=== PATIENT | female | born 2000 | race Hispanic/Latino ===

== ENCOUNTER 2021-04-04 07:30 | Inpatient (IN) | payer OTHER ==
[2021-04-04] MEDS: Lactated Ringer's 1,000 ML IV SCH ×3 (08:20→22:40)
[2021-04-04] MEDS ORDERED: Ondansetron PF 4 MG/2 ML Vial IVP PRN (08:29)
[2021-04-04] MEDS ORDERED: Famotidine/PF 20 mg/2ml Vial SLOW IVP PRN (08:29)
[2021-04-04] MEDS ORDERED: CEFAZOLIN 2 GM in Premix Bag 1 BAG IVPB SCH (08:29)
[2021-04-04] MEDS ORDERED: Butorphanol Tartrate 1 MG/ML VIAL SLOW IVP PRN (08:29)
[2021-04-04] MEDS ORDERED: Promethazine HCl 25 MG/ML VIAL IM PRN ×2 (08:29→13:22)
[2021-04-04] MEDS ORDERED: hydrALAZINE 20 MG/ML VIAL SLOW IVP PRN ×2 (08:29→15:49)
[2021-04-04] MEDS ORDERED: Bicitra 30 ML UDCUP PO PRN (08:29)
[2021-04-04 08:44] LABS: Hemoglobin 12.1 g/dL (12.0-15.5); Mean Corpuscular HGB CONC 33.8 g/dL (32.0-36.0); Mean Corpuscular Hemoglobin 31.1 pg (27.0-33.0); Platelet Count 147 10x3/uL (150-450); RBC Distribution Width 13.7 % (11.5-14.5); Red Blood Cell (RBC) Count 3.89 10x6/uL (3.90-5.03); White Blood Cell (WBC) Count 7.9 10x3/uL (3.5-10.5)
[2021-04-04 09:18] LABS: Hep B Surf Ag Non-Reactive S/CO (NonReactive)
[2021-04-04 09:19] LABS: Syphilis Antibody Nonreactive (Nonreactive); Syphilis Antibody Index 0.09 S/CO (<1.00 Non-Reactive)
[2021-04-04 09:24] LABS: HBSAg Index 0.18 S/CO (0-0.99)
[2021-04-04 09:45] LABS: SARS-CoV-2 NAA Rapid Test Not Detected (NotDetected)
[2021-04-04 11:15] VITALS: BMI 29.2
[2021-04-04] MEDS ORDERED: ePHEDrine Sulfate 50 MG/10 ML VIAL ONE (11:24)
[2021-04-04] MEDS ORDERED: Morphine PF 10 MG/10 ML VIAL ONE (11:24)
[2021-04-04] MEDS ORDERED: Ondansetron PF 4 MG/2 ML Vial ONE (11:25)
[2021-04-04] MEDS ORDERED: Dexamethasone 4 mg/ml Vial ONE ×2 (11:25→13:09)
[2021-04-04] MEDS ORDERED: Phenylephrine 10 MG/ML VIAL ONE (11:32)
[2021-04-04] MEDS ORDERED: Promethazine HCl 25 MG SUPP PR PRN (13:22)
[2021-04-04] MEDS ORDERED: Ondansetron HCl/PF 4 MG/2 ML Vial IVP PRN (13:22)
[2021-04-04] MEDS ORDERED: Hydrocerin (Eucerin) Cream 120 gm Jar TOP PRN (13:22)
[2021-04-04] MEDS ORDERED: Fentanyl 100 MCG/2 ML VIAL SLOW IVP PRN (13:22)
[2021-04-04] MEDS ORDERED: HYDROmorphone 2 MG/ML VIAL SLOW IVP PRN (13:22)
[2021-04-04] MEDS ORDERED: Naloxone HCl 0.4 mg/ml Vial IVP PRN ×2 (13:22)
[2021-04-04] MEDS ORDERED: diphenhydrAMINE 50 MG/ML VIAL IVP PRN (13:22)
[2021-04-04] MEDS ORDERED: Naloxone HCl 0.4 mg/ml Vial IV PRN (13:22)
[2021-04-04] MEDS ORDERED: Communication Order-Pharmacy FS SCH (13:30)
[2021-04-04] MEDS ORDERED: Ketorolac Tromethamine 30 MG/ML VIAL IVP SCH (13:30)
[2021-04-04] MEDS ORDERED: NS w/ Oxytocin 30 units 500 ML ONE (13:44)
[2021-04-04] MEDS ORDERED: Bisacodyl 10 MG SUPP PR PRN (15:49)
[2021-04-04] MEDS ORDERED: Boostrix 0.5 ML (Tdap) VIAL IM ONE (15:49)
[2021-04-04] MEDS ORDERED: diphenhydrAMINE 25 MG CAP PO PRN (15:49)
[2021-04-04] MEDS ORDERED: Simethicone Chewable 80 MG TAB PO PRN (15:49)
[2021-04-04] MEDS ORDERED: Acetaminophen 325 MG TAB PO PRN (15:49)
[2021-04-04] MEDS ORDERED: Lanolin Ointment 7 GM TUBE TOP PRN (15:49)
[2021-04-04] MEDS ORDERED: Ibuprofen 800 MG TAB PO SCH (16:30)
[2021-04-04] MEDS: Ferrous Sulfate 325 MG TAB PO SCH (21:13)
[2021-04-04] MEDS: Docusate 100 MG CAP PO SCH (21:13)
[2021-04-04] MEDS ORDERED: Ondansetron ODT 4 MG TAB PO PRN (22:04)
[2021-04-04] MEDS ORDERED: Ondansetron HCl/PF 6 MG in Sodium Chloride 0.9% 50 ML IVPB PRN (22:06)
[2021-04-04] MEDS ORDERED: Ketorolac Tromethamine 30 MG/ML VIAL IVP PRN (22:07)
[2021-04-05] MEDS ORDERED: HYDROcodone/Acetaminophen 5/325 mg Tablet PO PRN (01:30)
[2021-04-05 05:09] LABS: Hemoglobin 11.5 g/dL (12.0-15.5); Mean Corpuscular HGB CONC 33.2 g/dL (32.0-36.0); Mean Corpuscular Hemoglobin 30.7 pg (27.0-33.0); Mean Corpuscular Volume 92.3 fl (81.6-98.3); Mean Platelet Volume 10.9 fl (7.4-10.4); Platelet Count 150 10x3/uL (150-450); RBC Distribution Width 13.3 % (11.5-14.5); Red Blood Cell (RBC) Count 3.75 10x6/uL (3.90-5.03); White Blood Cell (WBC) Count 14.1 10x3/uL (3.5-10.5)
[2021-04-05] MEDS: Prenatal Vitamin 1 TAB PO SCH (08:33)
[2021-04-05] MEDS: Docusate 100 MG CAP PO SCH ×2 (08:33→21:09)
[2021-04-05] MEDS: Ferrous Sulfate 325 MG TAB PO SCH (08:41)
[2021-04-05] MEDS: HYDROcodone/Acetaminophen 5/325 mg Tablet PO PRN ×3 (10:57→19:40)
[2021-04-05] MEDS: Ibuprofen 800 MG TAB PO SCH ×2 (13:46→21:10)
[2021-04-06] MEDS: Ferrous Sulfate 325 MG TAB PO SCH (00:51)
[2021-04-06] MEDS: HYDROcodone/Acetaminophen 5/325 mg Tablet PO PRN (04:05)
[2021-04-06] MEDS: Ibuprofen 800 MG TAB PO SCH (06:00)
[2021-04-06 07:49] VITALS: BP 95/54; TEMP 98.5
[2021-04-06] MEDS: Docusate 100 MG CAP PO SCH (09:07)
[2021-04-06] MEDS: Prenatal Vitamin 1 TAB PO SCH (09:07)
== END 2021-04-06 12:15 | disposition home or self-care (01) | DRG 788 ==
LOC: CSHLD 07:41 → CSHPED 17:03
PROVIDERS: ADMIT Obstetrics & Gynecology; ATTEND Obstetrics & Gynecology
PROC: 10D00Z1 Extraction of Products of Conception, Low, Open Approach (ICD-10-PCS; principal; 2021-04-04)
DX: O34.211 Maternal care for low transverse scar from previous cesarean delivery (principal); Z3A.39 39 weeks gestation of pregnancy; Z37.0 Single live birth; Z20.822 Contact with and (suspected) exposure to COVID-19
CPT/HCPCS: 36415; 74018; 85027; 86780; 86850; 86900; 86901; 87340; J1100; J1885; J2274; J2370; J2405; J2590; J7120; Q0162; S0028; U0002